=== PATIENT | female | born 1955 | race Caucasian/White ===

== ENCOUNTER 2019-02-18 17:19 | Inpatient (IN) | payer SELFPAY ==
[2019-02-18 18:13] LABS: ADD MAN DIFF? NO
[2019-02-18 18:15] LABS: BASOPHILS % 0.4 % (0.0-2.0); EOSINOPHILS # 0.3 10^3/ul (0.0-0.5); HEMATOCRIT 39.8 % (37.0-47.0); HEMOGLOBIN 13.2 g/dl (12.0-16.0); LYMPHOCYTES # 2.8 10^3/ul (0.8-2.9); LYMPHOCYTES % 28.6 % (15.0-51.0); MEAN CORPUSCULAR HEMOGLOBIN 29.9 pg (29.0-33.0); MEAN CORPUSCULAR HGB CONC 33.2 g/dl (32.0-37.0); MEAN CORPUSCULAR VOLUME 90.2 fl (82.0-101.0); MEAN PLATELET VOLUME 9.5 fl (7.4-10.4); MONOCYTE # 0.9 10^3/ul (0.3-0.9); MONOCYTES % 8.7 % (0.0-11.0); NEUTROPHIL # 5.8 10^3/ul (1.6-7.5); NEUTROPHILS % 58.8 % (39.0-77.0); PLATELET COUNT 304 10^3/UL (140-415); RED BLOOD COUNT 4.41 10^6/ul (4.20-5.40); RED CELL DISTRIBUTION WIDTH 14.3 % (11.5-14.5)
[2019-02-18 18:15] LABS: WHITE BLOOD COUNT 9.9 10^3/ul (4.8-10.8)
[2019-02-18 18:41] LABS: ALANINE AMINOTRANSFERASE 15 IU/L (13-69); ALBUMIN 4.2 g/dl (3.3-4.9); ALBUMIN/GLOBULIN RATIO 1.02; ALKALINE PHOSPHATASE 98 IU/L (42-121); ANION GAP 11 (5-13); ASPARTATE AMINO TRANSFERASE 21 IU/L (15-46); BILIRUBIN,INDIRECT 0.3 mg/dl (0-1.1); BILIRUBIN,TOTAL 0.3 mg/dl (0.2-1.3); BLOOD UREA NITROGEN 19 mg/dl (7-20); CALCIUM 9.8 mg/dl (8.4-10.2); CARBON DIOXIDE 29 mmol/L (21-31); CHLORIDE 100 mmol/L (97-110); CREATININE 0.54 mg/dl (0.44-1.00); Estimated GFR > 60 mL/min (>60); GLUCOSE 87 mg/dl (70-220); LIPASE 201 U/L (23-300); POTASSIUM 3.2 mmol/L (3.5-5.1); SODIUM 140 mmol/L (135-144); TOTAL PROTEIN 8.3 g/dl (6.1-8.1)
[2019-02-18 18:53] LABS: TROPONIN-I < 0.012 ng/ml (0.000-0.120)
[2019-02-18] MEDS: SOD CHLORIDE 0.9% 1,000 ML IV (19:03)
[2019-02-18] MEDS: KETOROLAC 15 MG INJ IV (19:03)
[2019-02-18] MEDS: ONDANSETRON 4 MG INJ IV (19:04)
[2019-02-18] MEDS: MAGNESIUM SULFATE 2 GM/50 ML 50 ML IVPB (19:04)
[2019-02-18] MEDS ORDERED: NITROGLYCERIN (SL) 0.4 MG TAB SL (19:30)
[2019-02-18] MEDS ORDERED: DOCUSATE SODIUM 100 MG CAP PO (19:30)
[2019-02-18] MEDS ORDERED: LORAZEPAM 2 MG INJ IV (19:30)
[2019-02-18] MEDS ORDERED: morphine 2 MG INJ IV (19:30)
[2019-02-18] MEDS ORDERED: MAGNESIUM HYDROXIDE 30ML CUP PO (19:30)
[2019-02-18] MEDS ORDERED: HYDROCODONE/APAP (5/325) TAB PO (19:30)
[2019-02-18] MEDS ORDERED: NACL 0.9% 3 ML SYG IV (19:30)
[2019-02-18] MEDS ORDERED: ONDANSETRON 4 MG INJ IV (19:30)
[2019-02-18] MEDS ORDERED: ALBUTEROL/IPRATROPIUM (NEB) 3 ML AMP HHN (19:30)
[2019-02-18] MEDS: SOD CHLORIDE 0.45% 1,000 ML IV (22:11)
[2019-02-18] MEDS: HEPARIN 5,000 UNIT/1 ML VIAL SC (22:34)
[2019-02-19] MEDS: ACETAMINOPHEN 325 MG TAB PO (06:09)
[2019-02-19 06:47] LABS: ADD MAN DIFF? NO
[2019-02-19 06:49] LABS: WHITE BLOOD COUNT 6.8 10^3/ul (4.8-10.8)
[2019-02-19 06:49] LABS: BASOPHILS % 0.4 % (0.0-2.0); EOSINOPHILS # 0.2 10^3/ul (0.0-0.5); EOSINOPHILS % 3.2 % (0.0-7.0); HEMATOCRIT 38.2 % (37.0-47.0); HEMOGLOBIN 12.4 g/dl (12.0-16.0); LYMPHOCYTES # 2.2 10^3/ul (0.8-2.9); LYMPHOCYTES % 32.1 % (15.0-51.0); MEAN CORPUSCULAR HGB CONC 32.5 g/dl (32.0-37.0); MEAN CORPUSCULAR VOLUME 92.5 fl (82.0-101.0); MEAN PLATELET VOLUME 9.8 fl (7.4-10.4); MONOCYTE # 0.5 10^3/ul (0.3-0.9); MONOCYTES % 7.1 % (0.0-11.0); NEUTROPHIL # 3.9 10^3/ul (1.6-7.5); NEUTROPHILS % 56.9 % (39.0-77.0); PLATELET COUNT 297 10^3/UL (140-415); RED BLOOD COUNT 4.13 10^6/ul (4.20-5.40); RED CELL DISTRIBUTION WIDTH 14.5 % (11.5-14.5)
[2019-02-19 07:11] LABS: CHOLESTEROL 138 mg/dl (100-200)
[2019-02-19 07:11] LABS: CHOL/HDL RATIO 4.3 RATIO; HDL CHOLESTEROL 32 mg/dl (35-98); LDL CHOLESTEROL,CALCULATED 71 mg/dl; TRIGLYCERIDES 173 mg/dl (0-149)
[2019-02-19 07:12] LABS: ANION GAP 7 (5-13); BLOOD UREA NITROGEN 16 mg/dl (7-20); CARBON DIOXIDE 29 mmol/L (21-31); CHLORIDE 104 mmol/L (97-110); CREATININE 0.48 mg/dl (0.44-1.00); Estimated GFR > 60 mL/min (>60); GLUCOSE 149 mg/dl (70-220); PHOSPHORUS 4.2 mg/dl (2.5-4.9); POTASSIUM 3.7 mmol/L (3.5-5.1); SODIUM 140 mmol/L (135-144)
[2019-02-19 07:19] LABS: HEMOGLOBIN A1C 6.6 % (0-5.9)
[2019-02-19] MEDS: SOD CHLORIDE 0.45% 1,000 ML IV (08:48)
[2019-02-19] MEDS: HEPARIN 5,000 UNIT/1 ML VIAL SC (09:07)
[2019-02-19 13:32] LABS: FREE T4 (FREE THYROXINE) 1.23 ng/dl (0.78-2.44)
[2019-02-19] MEDS ORDERED: ACCU-CHEK XX (17:25)
[2019-02-19] MEDS ORDERED: metFORMIN 500 MG TAB PO (17:55)
[2019-02-19] MEDS ORDERED: FISH OIL 1,000 MG CAP PO (21:00)
[2019-02-19] MEDS ORDERED: CALCIUM/VITAMIN D (500/200) TAB PO (21:00)
[2019-02-19] MEDS ORDERED: ATORVASTATIN 40 MG TAB PO (21:00)
[2019-02-19] MEDS ORDERED: MOMETASONE 0.24 GM INHALER INH (21:00)
[2019-02-19] MEDS ORDERED: GEMFIBROZIL 600 MG TAB PO (21:00)
[2019-02-20] MEDS ORDERED: LOSARTAN 25 MG TAB PO (09:00)
[2019-02-20] MEDS ORDERED: INDAPAMIDE 2.5 MG PO (09:00)
[2019-02-20] MEDS ORDERED: ASPIRIN (EC) 81 MG TAB PO (09:00)
== END 2019-02-19 16:20 | disposition home or self-care (01) | DRG 312 ==
LOC: E/R 17:19 → TEL 18:26
PROVIDERS: Internal Medicine
DX: R55 Syncope and collapse (principal); I45.81 Long QT syndrome; I10 Essential (primary) hypertension; E11.9 Type 2 diabetes mellitus without complications; E87.6 Hypokalemia
CPT/HCPCS: 36415; 70450; 71045; 80048; 80053; 80061; 82962; 83036; 83690; 83735; 84100; 84439; 84443; 84484; 85025; 93005; 93306; 93880; 97162; 99285-25